=== PATIENT | male | born 1965 | race Two or more races ===

== ENCOUNTER 2025-10-03 19:48 | Emergency (ER) | payer OTHER ==
[~2025-10-03] VITALS: Ht 167.6 cm; Wt 113.4 kg
[~2025-10-03 19:48] MED LIST: MICARDIS80 MG
[2025-10-03] MEDS ORDERED: NORVASC5 MG PO (20:19)
[2025-10-03] MEDS ORDERED: TENORMIN25 MG PO (20:19)
[2025-10-03] MEDS ORDERED: AVALIDE 300-121 EACH PO (20:19)
[2025-10-03 20:20] VITALS: BP 154/87; O2SAT 95
[2025-10-03] MEDS ORDERED: CRESTOR40 MG PO (20:20)
[2025-10-03] MEDS ORDERED: ONDANSETRON HCL 4 MG in 0.9 % SODIUM CHLORIDE 50 ML IV ONE (21:15)
[2025-10-03] MEDS ORDERED: FAMOTIDINE/PF 20 MG in 0.9 % SODIUM CHLORIDE 8 ML IV PUSH ONE (21:15)
[2025-10-03] MEDS ORDERED: KETOROLAC TROMETHAMINE 30 MG VIAL IU ONE (21:15)
[2025-10-03] MEDS ORDERED: HYOSCYAMINE SULFATE 0.125 MG TAB.SUBL SL ONE (21:15)
[2025-10-03] MEDS ORDERED: 0.9 % SODIUM CHLORIDE 1,000 ML IV ONE (21:15)
[2025-10-03] MEDS ORDERED: ONDANSETRON HCL 2 MG/ML VIAL ONE (21:45)
[2025-10-03] MEDS ORDERED: KETOROLAC TROMETHAMINE 30 MG VIAL ONE (21:45)
[2025-10-03] MEDS ORDERED: HYOSCYAMINE SULFATE 0.125 MG TAB.SUBL ONE (21:45)
[2025-10-03] MEDS ORDERED: FAMOTIDINE/PF 20 MG/2 ML VIAL ONE (21:45)
[2025-10-03 22:18] LABS: BASO % 0.2 % (0.1-1.2); EOS # 0.03 (0.04-0.54); EOS % 0.4 % (0.7-7.0); LYMPH # 1.53 (1.18-3.74); LYMPH % 18.6 % (19.3-53.1); MEAN PLATELET VOLUME 9.00 fl (9.4-12.4); MONO # 0.65 (0.24-0.82); MONO % 7.9 % (4.7-12.5); NEUT # 5.98 (1.56-6.13); NEUT % 72.5 % (34.0-71.1); RED CELL DISTRIBUTION WIDTH 11.9 % (11.6-14.4)
[2025-10-03 22:31] LABS: URINE APPEARANCE Clear; URINE BILIRRUBIN Negative (NEGATIVE); URINE BLOOD Negative; URINE COLOR Yellow; URINE GLUCOSE Negative (NEGATIVE); URINE KETONE Negative (NEGATIVE); URINE LEUKOCYTE Negative; URINE NITRATE Negative; URINE PROTEIN Negative (NEGATIVE); URINE UROBILINOGEN 1.0 E.U./dl
[2025-10-03 22:34] LABS: URINE BACTERIA 11.4 uL (0.0-1933); URINE WBC 2.9 uL (0.0-23.2)
[2025-10-03 22:35] LABS: URINE CAST 0.00 uL (0.0-1.40); URINE EPITHELIAL CELLS 0.6 uL (0.0-38.8); URINE RBC 1.2 uL (0.0-20.8)
[2025-10-03 22:47] LABS: INR 1.1
[2025-10-03 22:59] LABS: ALT/SGPT 61.0 U/L (12-78); AST/SGOT 24.0 U/L (15-37); BILIRUBIN TOTAL 0.7 mg/dL (0.3-1.2); BUN CREA RATIO 13.0 (7.0-25.0); CREATININE SERUM 0.76 mg/dL (0.70-1.30); GFR 105.34; GLOBULINA 3.5 G/DL (2.4-3.5); GLUCOSE FASTING 121.0 mg/dL (65-100); OSMOLALITY SERUM 276.0 MOSM/KG (275-295)
[2025-10-04] MEDS ORDERED: ZOFRAN8 MG PO (01:16)
[2025-10-04] MEDS ORDERED: PROTONIX40 MG PO (01:16)
[2025-10-04] MEDS ORDERED: LEVSIN/SL0.125 MG SL (01:16)
[2025-10-04] MEDS ORDERED: PEPCID AC20 MG PO (01:16)
== END 2025-10-04 01:29 | disposition home or self-care (01) ==
LOC: ER 19:49
PROVIDERS: General Practice
DX: K52.89 Other specified noninfective gastroenteritis and colitis (principal); R10.31 Right lower quadrant pain; J45.909 Unspecified asthma, uncomplicated